=== PATIENT | male | born 1985 | race African-American/Black ===

== ENCOUNTER 2018-05-09 00:39 | Emergency (ER) | payer BC ==
[2018-05-09 00:45] VITALS: BP 118/72
[2018-05-09] MEDS ORDERED: ONDANSETRON HCL INJ/PF 4 MG/2 ML SDV IV ONE (01:59)
[2018-05-09] MEDS ORDERED: NORMAL SALINE 1000 ML 1,000 ML IV ONE (02:00)
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
[2018-05-09 02:36] LABS: ABSOLUTE EOSINOPHILS # (AUTO) 0.1 10^3/uL (0.0-0.6); ABSOLUTE LYMPHOCYTES (AUTO) 1.3 10^3/uL (0.5-4.7); ABSOLUTE NEUT (AUTO) 6.5 10^3/uL (1.7-8.2); BASOPHILS % (AUTO) 0.3 % (0-2); EOSINOPHILS % (AUTO) 1.2 % (0-6); HEMATOCRIT 48.2 % (37.9-51.0); HEMOGLOBIN 16.1 g/dL (13.5-17.0); LYMPHOCYTES % (AUTO) 14.2 % (13-45); MEAN CORPUSCULAR HEMOGLOBIN 29.5 pg (27.0-33.4); MEAN CORPUSCULAR HGB CONC 33.5 g/dL (32.0-36.0); MEAN CORPUSCULAR VOLUME 88 fl (80-97); MONOCYTES % (AUTO) 10.7 % (3-13); PLATELET COUNT 321 10^3/uL (150-450); RED BLOOD COUNT 5.47 10^6/uL (4.35-5.55); RED CELL DISTRIBUTION WIDTH 13.3 % (11.5-14.0); SEGMENTED NEUTROPHILS % (AUTO) 73.6 % (42-78); TOTAL CELLS COUNTED % (AUTO) 100 %; WHITE BLOOD COUNT 8.9 10^3/uL (4.0-10.5)
[2018-05-09 02:51] LABS: ALANINE AMINOTRANSFERASE 25 U/L (21-72); ALBUMIN 4.3 g/dL (3.5-5.0); ALKALINE PHOSPHATASE 90 U/L (38-126); ANION GAP 12 (5-19); ASPARTATE AMINO TRANSFERASE 22 U/L (17-59); BILIRUBIN,DIRECT 0.3 mg/dL (0.0-0.4); BILIRUBIN,TOTAL 0.5 mg/dL (0.2-1.3); BLOOD UREA NITROGEN 16 mg/dL (7-20); CALCIUM 9.1 mg/dL (8.4-10.2); CARBON DIOXIDE 29 mmol/L (22-30); CHLORIDE 102 mmol/L (98-107); GLUCOSE 103 mg/dL (75-110); POTASSIUM 3.8 mmol/L (3.6-5.0); SODIUM 143.4 mmol/L (137-145); TOTAL PROTEIN 8.1 g/dL (6.3-8.2)
[2018-05-09 02:52] LABS: APPEARANCE,URINE SLIGHTLY-CLOUDY; BILIRUBIN,URINE NEGATIVE (NEGATIVE); COLOR,URINE YELLOW; GLUCOSE, URINE NEGATIVE (NEGATIVE); KETONES,URINE NEGATIVE (NEGATIVE); LEUKOCYTE ESTERASE,URINE NEGATIVE (NEGATIVE); NITRITE,URINE NEGATIVE (NEGATIVE); PROTEIN,URINE 30 mg/dL (NEGATIVE); URINE SPECIFIC GRAVITY 1.032
[2018-05-09] MEDS ORDERED: ONDANSETRON ODT 4 MG TAB (6 TAB/ER DISP) PO PRN (03:26)
== END 2018-05-09 03:52 | disposition home or self-care (01) ==
LOC: ER 00:39
DX: R11.0 Nausea (principal); R19.7 Diarrhea, unspecified; F17.200 Nicotine dependence, unspecified, uncomplicated
CPT/HCPCS: 99284; 96361; 96374; 36415; 85025; 80053; 81001; J2405; J7030

== ENCOUNTER 2018-05-26 14:52 | Emergency (ER) | payer SELFPAY ==
[2018-05-26 15:36] VITALS: BP 127/77
[2018-05-26] MEDS ORDERED: CEPHALEXIN 500 MG CAPSULE PO ONE (16:03)
[2018-05-26] MEDS ORDERED: FLUCONAZOLE 100 MG TABLET PO ONE (16:03)
--- NOTE | 2018-05-26 16:09 | ER Document Report ---
HPI - HPI Patient complains to provider of: Left foot wound Time Seen by Provider: 05/26/18 15:50 Onset: Other - 2 days Onset/Duration: Worse Quality of pain: Achy Pain Level: 4 Context: Patient complains of wound to the webspace of the left foot fourth and fifth toes. Patient states he has had similar problem in the past and was given cream to treat this. Patient denies any injury or fever. Patient denies any history of diabetes. Patient states that he was told this problem was due to too much foot moisture. Associated Symptoms: Other - Left foot wound. denies: Fever Exacerbated by: Movement Relieved by: Denies Similar symptoms previously: Yes Recently seen / treated by doctor: No - ROS ROS below otherwise negative: Yes Systems Reviewed and Negative: Yes All other systems reviewed and negative - CONSTITUTIONAL Constitutional: DENIES: Fever, Chills - MUSCULOSKELETAL Musculoskeletal: REPORTS: Extremity pain - DERM Skin Color: Erythema Notes: Wound to the left foot Past Medical History - General Information source: Patient - Social History Smoking Status: Never Smoker Frequency of alcohol use: None Drug Abuse: None Occupation: None Family History: Reviewed & Not Pertinent Patient has suicidal ideation: No Patient has homicidal ideation: No - Medical History Medical History: Negative Renal/ Medical History: Denies: Hx Peritoneal Dialysis Past Surgical History: Reports: Hx Abdominal Surgery - 2001 - unsure what it was for Vertical Provider Document - CONSTITUTIONAL Agree With Documented VS: Yes Exam Limitations: No Limitations General Appearance: WD/WN, No Apparent Distress - INFECTION CONTROL TRAVEL OUTSIDE OF THE [place] IN LAST 30 DAYS: No - HEENT HEENT: Atraumatic, Normocephalic - NECK Neck: Normal Inspection - RESPIRATORY Respiratory: Breath Sounds Normal, No Respiratory Distress - CARDIOVASCULAR Cardiovascular: Regular Rate, Regular Rhythm Pulses: Normal: Dorsalis pedis - BACK Back: Normal Inspection - MUSCULOSKELETAL/EXTREMETIES Musculoskeletal/Extremeties: MAEW, Tender, No Edema Notes: Tenderness to webspace of left foot between fourth and fifth toes area is white and macerated. Patient with faint erythema extending to dorsum of left foot - NEURO Level of Consciousness: Awake, Alert, Appropriate Motor/Sensory: No Motor Deficit - DERM Integumentary: Warm, Dry, Rash - Rash to the lateral aspect of the midfoot area that is scaling with well demarcated margins Course - Re-evaluation Re-evalutation: 05/26/18 16:04 Patient presents with laceration to web space of foot concerning for ulcerative tinea pedis with concern about cellulitis with erythema extending up the dorsum of the foot. Patient nontoxic in appearance without any fever. Wound culture will be sent. - Vital Signs Vital signs: Temp Pulse Resp BP Pulse Ox 98.1 F 75 16 127/77 H 98 05/26/18 15:35 05/26/18 15:35 05/26/18 15:35 05/26/18 15:35 05/26/18 15:35 Discharge - Discharge Clinical Impression: Wound of skin Tinea pedis Qualifiers: Laterality: left Qualified Code(s): B35.3 - Tinea pedis Condition: Stable Disposition: HOME, SELF-CARE Instructions: Cephalexin ([facility]), Skin Fungus ([facility]), Topical Antifungal ([facility]) Additional Instructions: Return as needed for any new or worsening symptoms Keep area clean and dry, apply medication as prescribed Wound culture is pending, will call if you need any different treatment Follow-up with podiatry for any persistent problems Prescriptions: Cephalexin Monohydrate [Keflex 500 mg Capsule] 500 mg PO Q6H 5 Days capsule Fluconazole [Diflucan] 150 mg PO ONCE PRN #1 tablet PRN Reason: Ketoconazole [Nizoral] 1 applic TP DAILY #30 cream.gm. Referrals: WILLIAM RUBY DPM [ACTIVE STAFF] - Follow up as needed ANGEL FELDMAN DPM [ACTIVE STAFF] - Follow up as needed
== END 2018-05-26 16:22 | disposition home or self-care (01) ==
LOC: ER 14:52
DX: S91.312A Laceration without foreign body, left foot, initial encounter (principal); X58.XXXA Exposure to other specified factors, initial encounter; B35.3 Tinea pedis
CPT/HCPCS: 87070; 87077; 87186; 87205; 99283

== ENCOUNTER 2019-08-22 08:05 | Emergency (ER) | payer SELFPAY ==
[2019-08-22 08:18] VITALS: BP 136/95
--- NOTE | 2019-08-22 10:01 | ER Document Report ---
ED ENT - General Chief Complaint: Ear Pain Stated Complaint: EAR PAIN Time Seen by Provider: 08/22/19 09:18 Notes: 34-year-old male presents to the emergency department with a one-week history of feeling as though his left ear is "clogged". States that he has had problems with earwax in the past and unable to get the left ear to open up during the past week. He denies ear pain or dizziness or associated symptoms. TRAVEL OUTSIDE OF THE [place] IN LAST 30 DAYS: No - Related Data Allergies/Adverse Reactions: No Known Allergies Allergy (Verified 05/26/18 15:34) Past Medical History - Social History Smoking Status: Current Every Day Smoker Frequency of alcohol use: None Drug Abuse: None Family History: Reviewed & Not Pertinent Patient has suicidal ideation: No Patient has homicidal ideation: No Renal/ Medical History: Denies: Hx Peritoneal Dialysis Past Surgical History: Reports: Hx Abdominal Surgery - 2001 - unsure what it was for Review of Systems - Review of Systems Notes: Constitutional: Negative for fever. HENT: + Left ear clogged. Eyes: Negative for visual changes. Cardiovascular: Negative for chest pain. Respiratory: Negative for shortness of breath. Gastrointestinal: Negative for abdominal pain, vomiting or diarrhea. Genitourinary: Negative for dysuria. Musculoskeletal: Negative for back pain. Skin: Negative for rash. Neurological: Negative for headaches, weakness or numbness. 10 point ROS negative except as marked above and in HPI. Physical Exam - Vital signs Vitals: Temp Pulse Resp BP Pulse Ox 97.8 F 70 16 136/95 H 100 08/22/19 08:17 08/22/19 08:17 08/22/19 08:17 08/22/19 08:17 08/22/19 08:17 - Notes Notes: PHYSICAL EXAMINATION: Physical Exam: General: Well-nourished well-developed in no acute distress HEENT: NC/AT, pupils equal round and reactive to light, MM moist,nares clear, oropharynx clear, airway patent, left ear with wax impaction, right side TM clear Neck: supple, no adenopathy, no masses. Good range of motion Lungs: clear, no wheezing, no rales no rhonchi CVS: Regular rate and rhythm no murmur gallop or rub Abdomen: Soft, active, nontender, no masses, no hepatosplenomegaly Ext: No edema, clubbing or cyanosis. Neuro: Alert and responsive, moving all 4 extremities on command, cranial nerves intact, no focal findings Skin: Intact no open lesions, no rash PSYCH: Normal mood, normal affect. Course - Re-evaluation Re-evalutation: 08/22/19 10:29 Patient's ear was flushed by the nurses and a large amount of cerumen was removed. When I went into reexamine the patient he was no longer in the room and has eloped from the emergency department. - Vital Signs Vital signs: Temp Pulse Resp BP Pulse Ox 97.8 F 70 16 136/95 H 100 08/22/19 08:17 08/22/19 08:17 08/22/19 08:17 08/22/19 08:17 08/22/19 08:17 Discharge - Discharge Clinical Impression: Impacted cerumen of left ear Condition: Good Disposition: ELOPED Instructions: Cerumen Impaction ([facility]) Additional Instructions: You were treated for a cerumen impaction today. If you have a recurrence of symptoms, [id number] Cerumenex may be of some utility. Please follow-up with your primary care doctor for further treatment if needed.
== END 2019-08-22 10:35 | disposition left against medical advice (07) ==
LOC: ER 08:05
DX: H61.22 Impacted cerumen, left ear (principal); F17.200 Nicotine dependence, unspecified, uncomplicated; Z53.20 Procedure and treatment not carried out because of patient's decision for unspecified reasons
CPT/HCPCS: 99281

== ENCOUNTER 2019-11-11 17:16 | Emergency (ER) | payer SELFPAY ==
[2019-11-11] MEDS ORDERED: AMOXICILLIN TRIHYDRATE 500 MG CAPSULE PO ONE (21:53)
--- NOTE | 2019-11-11 21:53 | ER Document Report ---
ED ENT - General Chief Complaint: Ear Pain Stated Complaint: RIGHT EAR CLOGGED/CAN'T HEAR Time Seen by Provider: 11/11/19 18:54 Mode of Arrival: Ambulatory Information source: Patient Notes: 34-year-old male no previous medical problems presents to the emergency room complaining of his right ear feeling clogged for the past 2 days. States his hearing is muffled. Has been trying to use hydrogen peroxide without relief. Denies any recent swimming or flying, denies any pain, denies any trauma or injury. TRAVEL OUTSIDE OF THE [place] IN LAST 30 DAYS: No - HPI Patient complains to provider of: Ear problem - Related Data Allergies/Adverse Reactions: No Known Allergies Allergy (Verified 05/26/18 15:34) Past Medical History - General Information source: Patient - Social History Smoking Status: Current Every Day Smoker Frequency of alcohol use: Occasional Drug Abuse: None Lives with: Family Family History: Reviewed & Not Pertinent Patient has homicidal ideation: Yes Renal/ Medical History: Denies: Hx Peritoneal Dialysis Past Surgical History: Reports: Hx Abdominal Surgery - 2001 - unsure what it was for Review of Systems - Review of Systems Constitutional: No symptoms reported EENT: Other - Muffled hearing to right ear. Right ear feels clogged Cardiovascular: No symptoms reported Respiratory: No symptoms reported Gastrointestinal: No symptoms reported Skin: No symptoms reported Neurological/Psychological: No symptoms reported -: Yes All other systems reviewed and negative Physical Exam - Vital signs Vitals: Temp Pulse BP Pulse Ox 98.3 F 61 133/80 H 100 11/11/19 17:20 11/11/19 17:20 11/11/19 17:20 11/11/19 17:20 - General General appearance: Appears well, Alert In distress: Mild - HEENT Head: Normocephalic, Atraumatic External canal: Cerumen impaction - Right ear, Tympanic membrane: Loss of landmarks Sinus: Normal Nasal: Normal Pharynx: Normal Neck: Normal. No: Lymphadenopathy - Respiratory Respiratory status: No respiratory distress Chest status: Nontender Breath sounds: Normal Chest palpation: Normal - Cardiovascular Rhythm: Regular Heart sounds: Normal auscultation Murmur: No - Neurological Neuro grossly intact: Yes Cognition: Normal Orientation: AAOx4 [place] Coma Scale Eye Opening: Spontaneous [place] Coma Scale Verbal: Oriented [place] Coma Scale Motor: Obeys Commands [place] Coma Scale Total: 15 Speech: Normal Motor strength normal: LUE, RUE, LLE, RLE Sensory: Normal - Skin Skin Temperature: Warm Skin Moisture: Dry Skin Color: Normal Course - Re-evaluation Re-evalutation: 11/11/19 21:52 Instilled normal saline mixed with hydrogen peroxide into the right ear canal, drained moderate amount of cerumen. Used curette to remove additional cerumen. Minimal bleeding in the outer ear canal after removal of cerumen. Patient tolerated well. Able to fully visualize tympanic membrane there is erythema noted to the tympanic membrane as well as the outer ear canal. 11/11/19 21:56 Reviewed diagnosis with patient. Counseled take antibiotics and use eardrops as prescribed. Outpatient follow-up with ENT call for an appointment. Have been provided with on-call physician. Tylenol and Motrin as needed for pain. Patient was counseled that there was minimal bleeding in the outer ear canal which may persist for the next 2 to 3 days. He was given strict return to the emergency room guidelines. Return for any new or worsening symptoms. All questions were answered. Patient verbalized understanding and agrees with plan of care. - Vital Signs Vital signs: Temp Pulse Resp BP Pulse Ox 98.3 F 61 133/80 H 100 11/11/19 18:06 11/11/19 17:20 11/11/19 17:20 11/11/19 17:20 Discharge - Discharge Clinical Impression: Right ear impacted cerumen Right otitis media Qualifiers: Otitis media type: unspecified Qualified Code(s): H66.91 - Otitis media, unspecified, right ear Right otitis externa Qualifiers: Otitis externa type: unspecified type Disposition: HOME, SELF-CARE Instructions: Use of Ear Drops ([facility]), Otitis Externa ([facility]), Otitis Media ([facility]), Cerumen Impaction ([facility]) Additional Instructions: Medications as prescribed. Outpatient follow-up with ENT next week. Tylenol and/or Motrin as needed for pain. Return for any new or worsening symptoms. Prescriptions: Amoxicillin 1 tab PO TID #30 tab Neomy Sulf/Polymyx B Sulf/Hc [Cortisporin Otic Susp] 4 drop RT_EAR QID 7 Days #1 bottle Referrals: MARCIA FLOR MD [ACTIVE STAFF] - Follow up in 3-5 days (Call for follow-up appointment.)
[2019-11-11 22:11] VITALS: BP 134/90
== END 2019-11-11 22:11 | disposition home or self-care (01) ==
LOC: ER 17:16
DX: H61.21 Impacted cerumen, right ear (principal); H66.91 Otitis media, unspecified, right ear; H60.91 Unspecified otitis externa, right ear; F17.200 Nicotine dependence, unspecified, uncomplicated
CPT/HCPCS: 99282

== ENCOUNTER 2019-11-18 10:27 | Emergency (ER) | payer SELFPAY ==
[2019-11-18 10:32] VITALS: BP 133/90
--- NOTE | 2019-11-18 10:53 | ER Document Report ---
HPI - HPI Patient complains to provider of: Right ear pain Time Seen by Provider: 11/18/19 10:40 Pain Level: Denies Context: 34-year-old healthy male presents emergency department with complaints of right ear irritation, decreased hearing, and drainage. He reports he was examined here in the emergency department last Thursday. He reports he had cerumen impaction. He reports that they attempted to irrigate his ears but were unable to remove all the wax. He was prescribed amoxicillin and Cortisporin otic suspension. He reports he then went to [facility] emergency department on Thursday where his ears were irrigated there. He reports they used a large syringe. He reports at one point he felt his ear pop he became dizzy had severe pain, he became very upset so he left. He reports since that time has been unable to hear well and has drainage. He has been taking his oral antibiotics but stopped using the eardrops. He denies fever vomiting diarrhea. Associated Symptoms: None Exacerbated by: Denies Relieved by: Denies Similar symptoms previously: Yes Recently seen / treated by doctor: Yes - CONSTITUTIONAL Constitutional: DENIES: Fever, Chills - EENT EENT: REPORTS: Ear Pain - REPRODUCTIVE Reproductive: DENIES: : Past Medical History - General Information source: Patient - Social History Smoking Status: Never Smoker Frequency of alcohol use: None Drug Abuse: None Family History: Reviewed & Not Pertinent Patient has suicidal ideation: No Patient has homicidal ideation: No - Medical History Medical History: Negative Renal/ Medical History: Denies: Hx Peritoneal Dialysis Past Surgical History: Reports: Hx Abdominal Surgery - 2001 - unsure what it was for Vertical Provider Document - CONSTITUTIONAL Agree With Documented VS: Yes Exam Limitations: No Limitations General Appearance: WD/WN, No Apparent Distress - INFECTION CONTROL TRAVEL OUTSIDE OF THE [place] IN LAST 30 DAYS: No - HEENT HEENT: Atraumatic, Normocephalic. negative: Conjuctival Injection, Pharyngeal Erythema Notes: Perforated right TM with erythema and bubbly fluid - NECK Neck: Normal Inspection, Supple. negative: Lymphadenopathy-Left, Lymphadenopathy-Right - RESPIRATORY Respiratory: No Respiratory Distress - CARDIOVASCULAR Cardiovascular: Regular Rate - MUSCULOSKELETAL/EXTREMETIES Musculoskeletal/Extremeties: MAEW, FROM - NEURO Level of Consciousness: Awake, Alert, Appropriate Motor/Sensory: No Motor Deficit - DERM Integumentary: Warm, Dry Course - Re-evaluation Re-evalutation: 11/18/19 11:00 34-year-old male presents today with right ear irritation reports decreased hearing and drainage. Reports he has had his ears irrigated twice in the past week for impacted cerumen. He reports his ear was irrigated at [facility] this past week when they were doing the procedure he felt a pop severe pain became dizzy. He reports since that time decreased hearing and drainage. Perforated right TM noted up on exam with some bubbly fluid. He was instructed to continue his antibiotics. He was instructed to follow-up with ENT. He was cautioned not to irrigate his ears or put anything in his ears. He verbalized understanding t o all instructions. - Vital Signs Vital signs: Temp Pulse Resp BP Pulse Ox 98.2 F 75 14 133/90 H 99 11/18/19 10:39 11/18/19 10:30 11/18/19 10:30 11/18/19 10:30 11/18/19 10:30 Discharge - Discharge Clinical Impression: Right otitis media, Perforated right tympanic membrane on examination Condition: Stable Disposition: HOME, SELF-CARE Instructions: Acetaminophen, ENT, Perforated Eardrum ([facility]) Additional Instructions: *You have been evaluated for perforated right tympanic membrane, ear pain, otitis media *Take your medication as prescribed from your last visit *Follow up with an ENT this week *Take Tylenol Motrin as indicated for pain *Return to ED for worsening condition, changes, needs Monitor your blood pressure. Your blood pressure was elevated today. This may be because you were anxious, in pain or because you need medication. It is important to follow up with your primary care provider for full evaluation. Forms: Elevated Blood Pressure Referrals: MARCIA FLOR MD [ACTIVE STAFF] - Follow up as needed LEA TAYLOR DO [ASSOCIATE] - Follow up as needed
== END 2019-11-18 10:55 | disposition home or self-care (01) ==
LOC: ER 10:27
DX: H66.91 Otitis media, unspecified, right ear (principal); H72.91 Unspecified perforation of tympanic membrane, right ear
CPT/HCPCS: 99282